=== PATIENT | male | born 1985 | race Caucasian/White ===

== ENCOUNTER 2017-10-05 11:40 | Emergency (ER) | payer SELFPAY ==
[~2017-10-05 11:40] MED LIST: CEPH500C3 PO; TYLE3 PO; Z.0.NO CURRENT MEDS
[2017-10-05 11:54] VITALS: BP 187/99; PULSE 80; RESP 16; TEMP 98.6; O2SAT 98
[2017-10-05] MEDS ORDERED: TETANUS/DIPHTHERIA TOXOID ADULT 0.5 ML VIAL IM ONE (14:00)
--- NOTE | 2017-10-05 14:02 | PD ---
HPI . Foreign body Chief Complaint: Foreign Body Time Seen by Provider: 13:44 Travel History International Travel<30 days: No Contact w/Intl Traveler<30days: No Traveled to known affect area: No History of Present Illness HPI Patient presents with the chief complaint of a foreign body in his left [place]. Onset was a couple days ago. He was working when a piece of metal flew up and hit him in the chin. He states that he initially thought that it was just a clean cut and treated it at home. However, he subsequently developed a foreign body sensation. He took a magnet and held over the wound and felt something move in the wound. He subsequently presented to us for treatment. He does not know the date of his last tetanus shot. He rates his pain 4/10. PFSH Past Medical History Diminished Hearing: No Tetanus Vaccination: > 5 Years Past Surgical History Surgical History: No Previous Surgery Social History Alcohol Use: Yes (OCCASIONAL) Tobacco Use: No Substance Use: No Allergies-Medications (Allergen,Severity, Reaction): Coded Allergies: No Known Allergies (Verified Adverse Reaction, Unknown, 10/05/17) Reported Meds & Prescriptions Reported Meds & Active Scripts Active Active Prescriptions or Reported Medications Unobtainable Review of Systems Except as stated in HPI: all other systems reviewed are Neg Physical Exam Narrative GENERAL: Awake and alert and in no acute distress. SKIN: Warm and dry. Healing laceration on the left [place]. It is tender. HEAD: Normocephalic/atraumatic. EYES: Pupils are equal. Extraocular movements are intact. NECK: Normal range of motion. RESPIRATORY: Nonlabored respirations. MUSCULOSKELETAL: Atraumatic. NEUROLOGICAL: Nonfocal. PSYCHIATRIC: Appropriate mood and affect. Data Data Last Documented VS Vital Signs Date Time Temp Pulse Resp B/P (MAP) Pulse Ox O2 Delivery O2 Flow Rate FiO2 10/05/17 11:54 98.6 80 16 187/99 (128) 98 Orders Orders Tetanus/Diphtheria Tox Adult (Tetanus/Di (10/05/17 14:00) MDM Medical Decision Making Medical Screen Exam Complete: Yes Emergency Medical Condition: Yes Differential Diagnosis Differential diagnosis includes but is not limited to simple foreign body, foreign body with wound infection, foreign body with cellulitis, foreign body with neurovascular compromise. Narrative Course This patient presents with a foreign body sensation in his left [place]. He actually used a magnet at home to determine whether or not there was a foreign body in the wound. Procedures Procedure Narrative Foreign Body Removal: Skin was prepped with Betadine and then anesthetized with 5 cc of 1% lidocaine with epi. The laceration was then opened using a #11 blade. The foreign body was immediately identified and removed using forceps. He tolerated the procedure well. He reports immediate improvement in his symptoms. Diagnosis Primary Impression: Foreign body (FB) in soft tissue Patient Instructions: General Instructions, Soft Tissue Foreign Body (ED) Scripts No Active Prescriptions or Reported Meds Disposition: 01 DISCHARGE HOME Condition: Stable Vi Jerez MD Oct 05, 2017 14:02
== END 2017-10-05 14:15 | disposition home or self-care (01) ==
LOC: PHED 11:40 → PHEFT 14:15
DX: M79.5 Residual foreign body in soft tissue (principal); W20.8XXA Other cause of strike by thrown, projected or falling object, initial encounter; Z23 Encounter for immunization
CPT/HCPCS: 10120; 90471; 90714